=== PATIENT | male | born 1985 | race Caucasian/White ===

== ENCOUNTER 2018-03-01 09:26 | Emergency (ER) | payer SELFPAY ==
[~2018-03-01] VITALS: Ht 167.6 cm; Wt 85.5 kg
[2018-03-01 09:32] VITALS: BP 163/113; PULSE 80; RESP 18; TEMP 98.6; O2SAT 100
--- NOTE | 2018-03-01 09:58 | PD ---
HPI Chief Complaint: Injury Time Seen by Provider: 09:50 Travel History International Travel<30 days: No Contact w/Intl Traveler<30days: No Traveled to known affect area: No History of Present Illness HPI 32-year-old male patient presents to the ER today, states that on Friday he had climbed on top of a garbage can and had fallen off hitting his right rib area and his head, had a loss of consciousness, had a vomiting episode yesterday. He denies other injuries, had gotten himself up and has been ambulatory but he has noted a lot of discomfort in his right rib area which she currently states is a 9 out of 10. It hurts with movements. He denies any shortness of breath, coughing, or other symptoms. Modifying Factors: Worse with movements Associated Signs & Symptoms: Fall from garbage can, right rib pain, head injury , loss of consciousness Risk Factors: None PFSH Past Medical History Medical History: Denies Significant Hx Influenza Vaccination: No Past Surgical History Surgical History: No Previous Surgery Social History Alcohol Use: Yes (daily-beer) Tobacco Use: Yes Substance Use: No Allergies-Medications (Allergen,Severity, Reaction): Coded Allergies: No Known Allergies (Unverified , 03/01/18) Reported Meds & Prescriptions Reported Meds & Active Scripts Active No Active Prescriptions or Reported Medications Review of Systems Except as stated in HPI: all other systems reviewed are Neg Physical Exam Narrative GENERAL: Well-developed young male patient currently and mild distress. Awake and oriented 3. SKIN: Focused skin assessment warm/dry. HEAD: Atraumatic. Normocephalic. EYES: Pupils equal and round. No scleral icterus. No injection or drainage. ENT: No nasal bleeding or discharge. Mucous membranes pink and moist. NECK: Trachea midline. No JVD. CARDIOVASCULAR: Regular rate and rhythm. No murmur appreciated. CHEST: Tender palpation in the right lateral chest wall without deformity or crepitance. No retractions or use of accessory muscles. RESPIRATORY: No accessory muscle use. Clear to auscultation. Breath sounds equal bilaterally. GASTROINTESTINAL: Abdomen soft, non-tender, nondistended. Hepatic and splenic margins not palpable. MUSCULOSKELETAL: No obvious deformities. No clubbing. No cyanosis. No edema. NEUROLOGICAL: Awake and alert. No obvious cranial nerve deficits. Motor grossly within normal limits. Normal speech. PSYCHIATRIC: Appropriate mood and affect; insight and judgment normal. Data Data Last Documented VS Vital Signs Date Time Temp Pulse Resp B/P (MAP) Pulse Ox O2 Delivery O2 Flow Rate FiO2 03/01/18 09:32 98.6 80 18 163/113 (130) [address] Brain W/O Iv Contrast(Rout) (03/01/18 09:50) Ct Thorax/ Chest Wo Iv Contras (03/01/18 09:50) MDM Medical Decision Making Medical Screen Exam Complete: Yes Emergency Medical Condition: Yes Medical Record Reviewed: Yes Interpretation(s) Last [address] 03/01/18 0950 Signed Impressions: CONCLUSION: 1. No acute intracranial abnormality is identified. 2. There is mucoperiosteal thickening within the paranasal sinuses. Chest CT 03/01/18 0950 Signed Impressions: CONCLUSION: 1. No acute finding is identified within the chest. 2. Hepatic steatosis. Differential Diagnosis Concussion versus intracranial injuries, rib fractures versus rib contusions, versus pulmonary injuries Narrative Course Abdomen is benign and I do not suspect an acute intra-abdominal injury or issue at this time. Neck is supple and he is afebrile. It appears that he may have a concussion since the CT the brain is negative for any signs of acute intracranial injuries. He does not have any raccoon eyes or hemotympanum, no lopez sign. He does not have a fractures on CAT scan or obvious pulmonary contusions. At this point, symptoms are likely secondary to rib contusions. My plan would be to give him symptomatic relief for the headaches and the nausea and have him follow-up as necessary with primary care doctor. Return for any worsening in symptoms as necessary. The plan has been discussed with him and he states understanding. Diagnosis Primary Impression: Concussion Additional Impression: Contusion of rib on right side Med/Other Pt SpecificInfo: Prescription(s) given Scripts Ondansetron Odt (Zofran Odt) 4 Mg Tab 4 MG SL Q6HR Y for Nausea/Vomiting, #7 TAB 0 Refills Prov: Diego Menchaca MD 03/01/18 Acetaminophen (Tylenol) 325 Mg Tab 650 MG PO Q6H Y for PAIN SCALE 1 TO 10, #15 TAB 0 Refills Prov: Diego Menchaca MD 03/01/18 Disposition: 01 DISCHARGE HOME Condition: Stable Diego Menchaca MD Mar 01, 2018 09:58
--- NOTE | 2018-03-01 10:20 | RADRPT ---
EXAM DATE: 03/01/2018 10:10 AM EDT AGE/SEX: 32 years / Male INDICATIONS: Head pain due to fall four days ago. CLINICAL DATA: This is the patient's initial encounter. Patient reports that signs and symptoms have been present for 4 - 6 days and indicates a pain score of 6/10. MEDICAL/SURGICAL HISTORY: None. None. RADIATION DOSE: 55.13 CTDI (mGy) COMPARISON: No prior exams available for comparison. TECHNIQUE: CT of the head without contrast. Using automated exposure control and adjustment of the mA and/or kV according to patient size, radiation dose was kept as low as reasonably achievable to ob tain optimal diagnostic quality images. FINDINGS: Cerebrum: The ventricles are normal. No midline shift, mass lesion, hemorrhage or acute infarction. No extraaxial fluid collections are seen. Posterior Fossa: The cerebellum and brainstem demonstrate no acute abnormality. The 4th ventricle is midline. The cerebellopontine angle is within normal limits. Extracranial: There is mucoperiosteal thickening within the sphenoid, ethmoid and maxillary sinuses. Skull: The calvaria is intact. No skull fracture. CONCLUSION: 1. No acute intracranial abnormality is identified. 2. There is mucoperiosteal thickening within the paranasal sinuses. Electronically signed by: Krzysztof Robin MD 03/01/2018 10:19 AM EDT
--- NOTE | 2018-03-01 10:23 | RADRPT ---
EXAM DATE: 03/01/2018 10:18 AM EDT AGE/SEX: 32 years / Male INDICATIONS: Chest pain due to fall four days ago. CLINICAL DATA: This is the patient's initial encounter. Patient reports that signs and symptoms have been present for 4 - 6 days and indicates a pain score of 4/10. MEDICAL/SURGICAL HISTORY: None. None. RADIATION DOSE: 11.35 CTDI (mGy) COMPARISON: No prior exams available for comparison. TECHNIQUE: Multiple contiguous axial images were obtained through the chest without contrast. Image s were obtained in suspended respiration using multiple row detector helical technique. Using [employer] exposure control and adjustment of the mA and/or kV according to patient size, radiation dose was kept as low as reasonably achievable to obtain optimal diagnostic quality images. FINDINGS: Lungs: No consolidation or pneumothorax. No concerning pulmonary nodule is identified. Mediastinum: The heart and great vessels demonstrate no acute abnormality. No lymphadenopathy is id entified. Pleurae: No pleural effusion or pleural thickening. Axillae: No lymphadenopathy. Musculoskeletal: The bones and soft tissues demonstrate no acute abnormality. Other: The visualized upper abdominal structures demonstrate no acute abnormality. There is abnorma l low-density of the liver. CONCLUSION: 1. No acute finding is identified within the chest. 2. Hepatic steatosis. Electronically signed by: Krzysztof Robin MD 03/01/2018 10:22 AM EDT
[2018-03-01] MEDS ORDERED: ZOFR4TAB3 SL (10:28)
[2018-03-01] MEDS ORDERED: TYLE325T PO (10:28)
[2018-03-01] MEDS ORDERED: ACETAMINOPHEN 325 MG TAB PO ONE (11:00)
== END 2018-03-01 10:59 | disposition home or self-care (01) ==
LOC: NEPE 09:26
DX: S06.0X9A Concussion with loss of consciousness of unspecified duration, initial encounter (principal); S20.211A Contusion of right front wall of thorax, initial encounter; W17.89XA Other fall from one level to another, initial encounter; Z72.0 Tobacco use
CPT/HCPCS: 70450; 71250; 99283